=== PATIENT | male | born 1990 | race Two or more races ===

== ENCOUNTER 2020-11-19 04:40 | Emergency (ER) | payer OTHER, MEDICAID ==
[~2020-11-19] VITALS: Ht 167.6 cm; Wt 107.0 kg
[2020-11-19 05:16] VITALS: BP 184/122
[2020-11-19] MEDS ORDERED: SODIUM CHLORIDE 0.9% 1,000 ML IV ONE (05:30)
== END 2020-11-19 08:06 | disposition left against medical advice (07) ==
LOC: EDBD 04:40 → ER 04:40
DX: S50.01XA Contusion of right elbow, initial encounter (principal); F19.10 Other psychoactive substance abuse, uncomplicated; R00.0 Tachycardia, unspecified; I10 Essential (primary) hypertension; F41.9 Anxiety disorder, unspecified; F32.9 Major depressive disorder, single episode, unspecified; F17.210 Nicotine dependence, cigarettes, uncomplicated; Y04.8XXA Assault by other bodily force, initial encounter; Y93.89 Activity, other specified; Y92.89 Other specified places as the place of occurrence of the external cause; Y99.8 Other external cause status
CPT/HCPCS: 93005; 96360; 99283; J7030